=== PATIENT | male | born 1960 | race Caucasian/White ===

== ENCOUNTER 2017-11-08 10:41 | Emergency (ER) | payer SELFPAY ==
[~2017-11-08] VITALS: Ht 190.5 cm; Wt 108.4 kg
[2017-11-08 10:47] VITALS: BP 158/100; PULSE 79; RESP 16; TEMP 97.6; O2SAT 97
[2017-11-08] MEDS ORDERED: TETANUS/DIPHTHERIA TOXOID ADULT 0.5 ML VIAL IM ONE (11:15)
[2017-11-08] MEDS ORDERED: CLIN300C5 PO (11:18)
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
[2017-11-08] MEDS ORDERED: CLINDAMYCIN 150 MG CAP PO ONE (11:30)
[2017-11-08] MEDS ORDERED: CLIN150C14 PO (11:31)
== END 2017-11-08 11:55 | disposition home or self-care (01) ==
LOC: PHED 10:41
DX: L08.9 Local infection of the skin and subcutaneous tissue, unspecified (principal); T23.4 Corrosion of unspecified degree of wrist and hand; Z23 Encounter for immunization
CPT/HCPCS: 90471; 90714